=== PATIENT | male | born 1955 | race Caucasian/White ===

== ENCOUNTER 2019-11-14 05:42 | Emergency (ER) | payer BC, OTHER ==
[~2019-11-14] VITALS: Ht 182.9 cm; Wt 113.4 kg
[2019-11-14 05:42] VITALS: BP_SYST 134
--- NOTE | 2019-11-14 05:52 | NUR ---
Pt BIB BLS, placed to ER bed 03. Report given to BERNADETTE Torres.
[2019-11-14] MEDS ORDERED: NACL 0.9% 1,000 ML IV ONE (06:00)
--- NOTE | 2019-11-14 06:05 | NUR ---
Dr. Hirsch bedside for Pt eval
--- NOTE | 2019-11-14 06:20 | NUR ---
Pt BIBA to ED C/O weakness in his legs. Patient was at work and he was bending down. The patient tried to get up but could not. Patient had weakness in his right leg greater than his left leg. The patient has incontinence from prostate cancer in the past. Patient denies having any back pain or back problems. He went to see his primary care doctor about his condition yesterday, but the doctor was only going to draw some blood work. He states he's been having this problem weakness in his legs right greater than left for the last 3 or 4 years VSS no s/s of acute distress Resting on [employer] up
--- NOTE | 2019-11-14 06:47 | NUR ---
Portable X Ray bedside, well tolerated
[2019-11-14 06:55] LABS: BASOPHILS % (AUTO) 0.6 % (0.0-2.0); HEMATOCRIT 47.8 % (36-54); HEMOGLOBIN 16.5 g/dL (14.0-18.0); LYMPHOCYTES # (AUTO) 0.5 K/uL (1.0-5.5); LYMPHOCYTES % (AUTO) 10.2 % (20.5-51.5); MEAN CORPUSCULAR HEMOGLOBIN 29 pg (27-31); MEAN CORPUSCULAR HGB CONC 35 % (32-36); MEAN CORPUSCULAR VOLUME 83 fL (79.0-98.0); MONOCYTES # (AUTO) 0.4 K/uL (0.0-1.0); MONOCYTES % (AUTO) 8.8 % (1.7-9.3); NEUTROPHILS # (AUTO) 3.6 K/uL (1.8-7.7); NEUTROPHILS % (AUTO) 79.4 % (40.0-70.0); PLATELET COUNT (AUTO) 189 K/uL (130-430); RED BLOOD CELL COUNT(AUTO) 5.75 MIL/uL (4.2-6.2); RED CELL DISTRIBUTION WIDTH 13.9 % (9.0-15.0); WHITE BLOOD COUNT (AUTO) 4.5 K/uL (4.8-10.8)
[2019-11-14 07:06] LABS: ANION GAP 6 (5-15); CALCIUM 9.3 mg/dL (8.4-11.0); CHLORIDE 97 mmol/L (98-107); CREATININE 0.99 mg/dL (0.55-1.30); GLUCOSE 294 mg/dL (70-99); POTASSIUM 4.4 mmol/L (3.5-5.1); SODIUM SERUM 133 mmol/L (136-145); UREA NITROGEN, BLOOD 10 mg/dL (8-21)
[2019-11-14 07:14] LABS: ALANINE AMINOTRANSFERASE 99 U/L (12-78); ALBUMIN 4.7 g/dL (3.4-4.8); ASPARTATE AMINOTRANSFERASE 49 U/L (10-37)
[2019-11-14 07:15] LABS: GFR AFRICAN AMERICAN 98 mL/min (>90)
--- NOTE | 2019-11-14 07:30 | NUR ---
Patient is resting comfortably in bed. Denied any respiratory distress at this time. IV fluids running. Instructed to notify ED staff for any changes in condition or worsening of symptoms. Patient verbalized understanding.
[2019-11-14 07:38] LABS: CKMB RELATIVE INDEX 1.2 (0.0-2.9); CREATINE KINASE MB 3.6 ng/mL (0-3.6)
[2019-11-14 08:30] VITALS: BP_SYST 131
== END 2019-11-14 08:30 | disposition home or self-care (01) ==
LOC: SED 05:42
DX: E11.65 Type 2 diabetes mellitus with hyperglycemia (principal); R53.1 Weakness; Z85.46 Personal history of malignant neoplasm of prostate
CPT/HCPCS: 36415; 70450; 71045; 80053; 82550; 82553; 83874; 84484; 85025; 93005; 96360; 96361; 99284; J7030

== ENCOUNTER 2023-03-17 23:15 | Inpatient (IN) | payer OTHER, MEDICAID ==
[~2023-03-17] VITALS: Ht 182.9 cm; Wt 98.0 kg
[2023-03-17 23:15] VITALS: BP_SYST 150
--- NOTE | 2023-03-17 23:15 | NUR ---
Patient triaged and placed in ER bed 7 for evaluation. Vital signs updated, denied any acute distress at this time. Report given to HUGO FLEMING for continuity of care. Instructed to notify ED staff for any changes in condition or worsening of symptoms. Patient verbalized understanding.
--- NOTE | 2023-03-17 23:36 | NUR ---
Dr. Saeed at bedside examining the patient.
[2023-03-17] MEDS ORDERED: NACL 0.9% 1,000 ML IV ONE (23:45)
--- NOTE | 2023-03-18 00:04 | NUR ---
Patient is back from CT.
[2023-03-18 00:51] LABS: BASOPHILS % (AUTO) 0.3 % (0.0-2.0); EOSINOPHILS % (AUTO) 0.3 % (0.0-4.0); HEMATOCRIT 41.8 % (36-54); HEMOGLOBIN 14.2 g/dL (14.0-18.0); LYMPHOCYTES % (AUTO) 9.7 % (20.5-51.5); MEAN CORPUSCULAR HEMOGLOBIN 28 pg (27-31); MEAN CORPUSCULAR HGB CONC 34 % (32-36); MEAN CORPUSCULAR VOLUME 83 fL (79.0-98.0); MONOCYTES # (AUTO) 0.9 K/uL (0.0-1.0); NEUTROPHILS # (AUTO) 8.8 K/uL (1.8-7.7); NEUTROPHILS % (AUTO) 81.7 % (40.0-70.0); PLATELET COUNT (AUTO) 200 K/uL (130-430); RED BLOOD CELL COUNT(AUTO) 5.02 MIL/uL (4.2-6.2); RED CELL DISTRIBUTION WIDTH 13.5 % (9.0-15.0); WHITE BLOOD COUNT (AUTO) 10.7 K/uL (4.8-10.8)
[2023-03-18 00:54] LABS: ANION GAP 11 (5-15); CALCIUM 8.7 mg/dL (8.4-11.0); CHLORIDE 100 mmol/L (98-107); CREATININE 0.96 mg/dL (0.55-1.30); GFR AFRICAN AMERICAN 100 mL/min (>90); GLUCOSE 268 mg/dL (70-99); UREA NITROGEN, BLOOD 13 mg/dL (8-21)
[2023-03-18 01:01] LABS: ALANINE AMINOTRANSFERASE 32 U/L (12-78); ALBUMIN 3.5 g/dL (3.4-4.8); ASPARTATE AMINOTRANSFERASE 18 U/L (10-37); TOTAL BILIRUBIN 0.8 mg/dL (0.0-1.0)
--- NOTE | 2023-03-18 01:10 | NUR ---
PT FAILING TO PRODUCE URINE SPECIMEN, TOLD PT I WOULD NEED TO STRAIGHT CATH ACCORDING TO MD VERBAL ORDERS. PT REFUSED AND STATED HE WILL PRODUCE URINE SAMPLE. PENDING SAMPLE. NO OTHER CHANGES.
[2023-03-18 02:16] LABS: BILIRUBIN,URINE NEGATIVE (NEGATIVE); BLOOD, URINE TRACE (NEGATIVE); CLARITY/URINE HAZY (CLEAR); COLOR,URINE YELLOW (YELLOW); GLUCOSE,URINE 2+ (NEGATIVE); KETONES,URINE NEGATIVE (NEGATIVE); LEUKOCYTE ESTERASE ,URINE NEGATIVE (NEGATIVE); NITRITE, URINE NEGATIVE (NEGATIVE); PROTEIN URINE NEGATIVE (NEGATIVE); UROBILINOGEN,URINE 0.2 (0.2-1.0)
[2023-03-18 02:31] LABS: BACTERIA,URINE None Seen /HPF (None Seen); RBC,URINE 0-3 /HPF (0-3); WBC,URINE 0-3 /HPF (0-3)
[2023-03-18] MEDS ORDERED: ZIT250 PO ×2 (03:03)
--- NOTE | 2023-03-18 07:15 | NUR ---
upon assessment, pt observed confused, diaphoretic, unable to follow direction, pt had urinated on self and was unware. Pt unable to stand without assistance and observed with unsteady gait. Notified MD and kept pt for further evaluation.
--- NOTE | 2023-03-18 07:38 | NUR ---
pt changed, EMT assisted in moving patient up in bed. Pt VSS. Pt educated on importance of him staying for evaluation. Pt verbilized understanding.
[2023-03-18] MEDS ORDERED: METF-381 PO (08:53)
--- NOTE | 2023-03-18 08:55 | NUR ---
Noted pt sat at 92. 2L of O2 started on pt. notified. Pt in bed with side rails up.
--- NOTE | 2023-03-18 09:44 | NUR ---
performed in and out cath. per admitting MD. UA collected sent to lab. pt tolerated well. Pt in bed with side rails up.
--- NOTE | 2023-03-18 09:49 | NUR ---
Admit bed requested Patient will be admitted to care of . Admitted to TELE unit. Diagnosis UNSTEADY GAIT Inpatient (Yes or No) Y Observation (Yes or No) N Orientation concerns or request close to nursing station (Yes or No) N Covid Status N/A On vent or bipap N Isolation requirements N Needs a sitter N From Home (Yes or if No enter name of facility) N, MOTEL 6 Requires Dialysis (Yes or No) N Med Rec Completed (Yes of No) Y
[2023-03-18 10:30] VITALS: BP_SYST 129
[2023-03-18] MEDS ORDERED: DEXTROSE 50% JECT 50 ML DISP.SYRIN IVP PRN (11:30)
[2023-03-18 12:08] LABS: BARBITURATE, URINE NEGATIVE (NEG <=200); BENZODIAZEPINE, URINE NEGATIVE (NEG <=150); CANNABINOID, URINE NEGATIVE (NEG <=50); COCAINE, URINE NEGATIVE (NEG <=150); METHAMPHETAMINES SCREEN,URINE NEGATIVE (NEG <=500); OPIATE, URINE NEGATIVE (NEG <=100); PHENCYCLIDINE SCREEN,URINE NEGATIVE (NEG <=25); UR TRICYCLIC ANTIDEPRESSANTS NEGATIVE (NEG <=300); URINE AMPHETAMINE NEGATIVE (NEG <=500); URINE METHADONE NEGATIVE (NEG <=200); URINE OXYCODONE SCREEN NEGATIVE (NEG <=100); URINE PROPOXYPHENE SCREEN NEGATIVE (NEG <=300)
--- NOTE | 2023-03-18 12:36 | NUR ---
CONSULTATION PAGED REASON FOR CONSULTATION:UNSTEADY GAIT WAS CONSULT CALLED?Y PERSON WHO WAS NOTIFIED:TEXT MESSAGED DEON NORTH CONSULTING PHYSICIAN:DEON NORTH RIBBON CLEANER SPECIALTY:NEURO RIBBON CLEANER PHONE NUMBER:[phone] REQUESTING PHYSICIAN:NIKOS GAYTAN
--- NOTE | 2023-03-18 12:39 | NUR ---
CONSULTATION PAGED REASON FOR CONSULTATION:UNSTEADY GAIT WAS CONSULT CALLED?Y PERSON WHO WAS NOTIFIED:FLAQUITA CONSULTING PHYSICIAN:ROBYN GERARDO SR. DIRECTOR PRODUCT MANAGEMENT SPECIALTY:CARDIO SR. DIRECTOR PRODUCT MANAGEMENT PHONE NUMBER:[phone] REQUESTING PHYSICIAN:MICHELLE GAYTAN
--- NOTE | 2023-03-18 13:00 | NUR ---
Patient will be admitted to care of [facility]. Admitted to medsurg unit. Will go to room 113. Belongings list completed. Complete and up to date summary report printed. SBAR report to be given at bedside with opportunity for questions.
[2023-03-18 17:45] VITALS: BP_SYST 163
[2023-03-18] MEDS: INSULIN REGULAR, HUMAN 100 UNITS/ML, 3 ML VIAL (humuLIN R) SUBCUT PRN ×2 (18:24→22:48)
[2023-03-18] MEDS: NACL 0.9% 1,000 ML IV SCH ×2 (18:53→22:49)
--- NOTE | 2023-03-18 19:10 | NUR ---
RECEIVED REPORT ON PATIENT FROM BERNADETTE JOHNSON, ASSUMED CARE, AND STARTED ASSESSMENT.
[2023-03-18 20:00] VITALS: BP_SYST 127
[2023-03-19 00:09] VITALS: BP_SYST 154
[2023-03-19 05:24] LABS: BASOPHILS % (AUTO) 0.5 % (0.0-2.0); EOSINOPHILS # (AUTO) 0.2 K/uL (0.0-0.4); EOSINOPHILS % (AUTO) 2.4 % (0.0-4.0); LYMPHOCYTES # (AUTO) 0.9 K/uL (1.0-5.5); LYMPHOCYTES % (AUTO) 13.1 % (20.5-51.5); MEAN CORPUSCULAR HEMOGLOBIN 28 pg (27-31); MEAN CORPUSCULAR HGB CONC 33 % (32-36); MEAN CORPUSCULAR VOLUME 84 fL (79.0-98.0); MONOCYTES # (AUTO) 0.8 K/uL (0.0-1.0); MONOCYTES % (AUTO) 12.1 % (1.7-9.3); NEUTROPHILS % (AUTO) 71.9 % (40.0-70.0); PLATELET COUNT (AUTO) 175 K/uL (130-430); RED BLOOD CELL COUNT(AUTO) 5.02 MIL/uL (4.2-6.2); RED CELL DISTRIBUTION WIDTH 13.5 % (9.0-15.0); WHITE BLOOD COUNT (AUTO) 6.9 K/uL (4.8-10.8)
[2023-03-19 05:59] LABS: CALCIUM 8.5 mg/dL (8.4-11.0); CREATININE 0.87 mg/dL (0.55-1.30); FREE T4 (FREE THYROXINE) 1.1 ng/dl (0.8-1.5); THYROID STIMULATING HORMONE 0.84 uIu/mL (0.36-3.74); TOTAL BILIRUBIN 0.8 mg/dL (0.0-1.0)
[2023-03-19] MEDS: INSULIN REGULAR, HUMAN 100 UNITS/ML, 3 ML VIAL (humuLIN R) SUBCUT PRN ×4 (07:02→21:16)
[2023-03-19 08:00] VITALS: BP_SYST 130
--- NOTE | 2023-03-19 08:00 | NUR ---
No complaints,v/s stable,continue with plan of care.
--- NOTE | 2023-03-19 08:04 | NUR ---
REPORT GIVEN TO BERNADETTE MOYA, AND CARE WAS TURNED OVER TO HIM.
[2023-03-19 08:06] LABS: FOLATE (FOLIC ACID) 13.9 ng/mL (>3.0)
[2023-03-19 11:40] VITALS: BP_SYST 117
--- NOTE | 2023-03-19 13:25 | NUR ---
Computer Education Professor assessment: Met with patient at bedside to discuss his current living arrangements. The patient is alert and oriented and is in agreement to speaking with me. per patient, he resides at [address] [address] in [place]. He states he has been there about 2 months, but is in the process of looking for an apartment. The patient was previously residing with her son, however they had a falling out and he left the home. He does have income, in which his disability is approximately $2200 and a care home of approximately $600. He states he and his son don't aways get along. The patient uses a cane as needed. He is independent with his care needs. His PCP is Dr. Oscar in [place]. The discharge plan is to return back to the [facility], but states he is making plans to look for an apartment to rent. Resources were offered to the patient regarding stable housing and services. The patient declined the information as he stated he does not have a housing need. He needed a quick living situation since he left his son's house abruptly.
--- NOTE | 2023-03-19 15:16 | NUR ---
PHYSICAL THERAPY CO-SIGN The Physical Therapy Progress Notes documented by Spd Tech have been reviewed. Reviewed/Co-Signed by: Arnold Stuart Documentation Done by:SEFERINO RUTHERFORD Addendum: 03/19/23 at 1517 by Arnold Stuart PT Amended: Links added.
[2023-03-19] MEDS: NACL 0.9% 1,000 ML IV SCH (17:30)
[2023-03-19 18:20] VITALS: BP_SYST 120
[2023-03-19] MEDS ORDERED: CYANOCOBALAMIN 1000 MCG/ML VIAL IM ONE (18:45)
[2023-03-19] MEDS: metFORMIN HCL 500 MG TABLET PO SCH (19:00)
--- NOTE | 2023-03-19 19:35 | NUR ---
Tolerating diet well,up in chair with PT,report given to Lizzie FLEMING
[2023-03-19 19:41] VITALS: BP_SYST 130
--- NOTE | 2023-03-19 19:41 | NUR ---
PM ASSESSMENT; -Pt is a/ox2, resting in bed comfortably. No s/s any acute distress noted. Generalized weakness noted. Unable to discuss poc d/t cognitive limitation, no family is available this time. All safety measures in place. Fall precaution in place. Side rails x3,call light w/in reach. Cont to monitor pt.
--- NOTE | 2023-03-20 00:16 | NUR ---
ROUNDS; -Pt is asleep. No s/s any acute distress noted. All safety measures in place. IVF infusing well, no s/s any infiltration noted. Call light w/in reach,side rails x3. Cont to monitor pt.
[2023-03-20 00:30] VITALS: BP_SYST 133
[2023-03-20] MEDS: NACL 0.9% 1,000 ML IV SCH ×2 (03:30→05:37)
[2023-03-20] MEDS: INSULIN REGULAR, HUMAN 100 UNITS/ML, 3 ML VIAL (humuLIN R) SUBCUT PRN ×4 (06:20→20:56)
--- NOTE | 2023-03-20 06:34 | NUR ---
CLOSING NOTES; -Pt is resting in bed comfortably. No s/s any acute distress noted. All safety measures in place. IVF infusing well, no s/s any infiltration noted. Call light w/in reach,side rails x3. Pt's condition stable. Will endorse to next nurse to continuity of care. .
[2023-03-20 07:55] VITALS: BP_SYST 130
[2023-03-20] MEDS: MULTIVITS,CA,MINERALS/IRON/FA 1 TABLET PO SCH (08:17)
[2023-03-20] MEDS: CYANOCOBALAMIN (VITAMIN B-12) 1,000 MCG TABLET PO SCH (08:18)
[2023-03-20] MEDS: metFORMIN HCL 500 MG TABLET PO SCH ×2 (08:18→17:08)
--- NOTE | 2023-03-20 09:18 | NUR ---
CONSULTATION PAGED/CALLED Reason for Consultation: Knees Effusion Person Who was Notified: Consulting Physician: Dr. Yancey (tonal regulator) Team Lead Specialty: Orthopaedic Surgery Ordering Physician: Dr. Muñiz
[2023-03-20] MEDS: CHOLECALCIFEROL (VITAMIN D3) 2,000 UNIT TABLET PO SCH (10:27)
[2023-03-20 12:00] VITALS: BP_SYST 132
[2023-03-20 16:00] VITALS: BP_SYST 133
--- NOTE | 2023-03-20 18:50 | NUR ---
Note Pt got OOB and was incontinent of stool on the floor and IV was pulled out. Pt was given hygiene care and assisted back to bed. Pt next to nurses' station for close observation for needs and care. Pt was maintained with safety precautions all shift. IV in LFA 20g' inserted, patent and intact at this time. Pt was checked on q1' and PRN all shift for needs and care. Call light within reach. Tele unit was dc'd at 08am.
[2023-03-20 20:52] VITALS: BP_SYST 132
--- NOTE | 2023-03-21 | NUR ---
24 hr chart verification- no new order.
[2023-03-21 00:26] VITALS: BP_SYST 150
--- NOTE | 2023-03-21 04:57 | NUR ---
Pt remained stable. denied any distress. V/s stable afebrile. Used urinal. Continent of urine and bm. able to call for help. Skin dry and intact.
[2023-03-21] MEDS: metFORMIN HCL 500 MG TABLET PO SCH ×2 (08:00→17:54)
[2023-03-21] MEDS: CYANOCOBALAMIN (VITAMIN B-12) 1,000 MCG TABLET PO SCH (09:00)
[2023-03-21] MEDS: CHOLECALCIFEROL (VITAMIN D3) 2,000 UNIT TABLET PO SCH (09:00)
[2023-03-21] MEDS: MULTIVITS,CA,MINERALS/IRON/FA 1 TABLET PO SCH (09:00)
[2023-03-21] MEDS: INSULIN REGULAR, HUMAN 100 UNITS/ML, 3 ML VIAL (humuLIN R) SUBCUT PRN ×3 (11:41→21:55)
[2023-03-21 12:00] VITALS: BP_SYST 144
--- NOTE | 2023-03-21 15:24 | NUR ---
Dietitian Recommendations * Continue [facility] [place] diet Submitted for JSOIAS Botello by Kenya Do, MPH, RD Please refer to RD Assessment for further details. Thanks!
[2023-03-21 16:33] VITALS: BP_SYST 148
--- NOTE | 2023-03-21 19:54 | NUR ---
RECEIVED PT LYING IN BED, NO DISTRESS NOTED, DENIES PAIN. AAOX2, LUNG SOUNDS DIMINISHED, IV TO LT WRIST. DENIES DIZZINESS AT THIS TIME. BED IN LOW POSITION, BED ALARM ON, CALL LIGHT WITHIN REACH.
[2023-03-21 20:00] VITALS: BP_SYST 120
--- NOTE | 2023-03-21 20:05 | NUR ---
patient doing well ambulating with out problems. Plans to transfer to [facility]
[2023-03-22] VITALS: BP_SYST 146
[2023-03-22 05:38] LABS: BASOPHILS % (AUTO) 0.5 % (0.0-2.0); EOSINOPHILS # (AUTO) 0.2 K/uL (0.0-0.4); EOSINOPHILS % (AUTO) 2.8 % (0.0-4.0); HEMATOCRIT 42.1 % (36-54); HEMOGLOBIN 14.4 g/dL (14.0-18.0); LYMPHOCYTES # (AUTO) 1.2 K/uL (1.0-5.5); LYMPHOCYTES % (AUTO) 19.2 % (20.5-51.5); MEAN CORPUSCULAR HEMOGLOBIN 28 pg (27-31); MEAN CORPUSCULAR HGB CONC 34 % (32-36); MEAN CORPUSCULAR VOLUME 82 fL (79.0-98.0); MONOCYTES # (AUTO) 0.5 K/uL (0.0-1.0); MONOCYTES % (AUTO) 8.6 % (1.7-9.3); NEUTROPHILS # (AUTO) 4.4 K/uL (1.8-7.7); NEUTROPHILS % (AUTO) 68.9 % (40.0-70.0); PLATELET COUNT (AUTO) 259 K/uL (130-430); RED BLOOD CELL COUNT(AUTO) 5.14 MIL/uL (4.2-6.2); RED CELL DISTRIBUTION WIDTH 13.4 % (9.0-15.0); WHITE BLOOD COUNT (AUTO) 6.4 K/uL (4.8-10.8)
[2023-03-22 06:02] LABS: CALCIUM 9.5 mg/dL (8.4-11.0); CREATININE 0.79 mg/dL (0.55-1.30)
[2023-03-22] MEDS: INSULIN REGULAR, HUMAN 100 UNITS/ML, 3 ML VIAL (humuLIN R) SUBCUT PRN ×3 (06:33→17:57)
--- NOTE | 2023-03-22 07:30 | NUR ---
Initial Note: Report received from Magdalene. patient is awake alert x3. Bed alarm is on. Bed in the lowest position. Side rails x3 up. Call light in reach. Assessment is done and vital checked. No pain or discomfort at this time. Will continue patient care.
[2023-03-22 08:00] VITALS: BP_SYST 131
[2023-03-22] MEDS ORDERED: LOSARTAN POTASSIUM 25 MG TABLET PO SCH (09:00)
[2023-03-22] MEDS: CHOLECALCIFEROL (VITAMIN D3) 2,000 UNIT TABLET PO SCH (09:40)
[2023-03-22] MEDS: CYANOCOBALAMIN (VITAMIN B-12) 1,000 MCG TABLET PO SCH (09:40)
[2023-03-22] MEDS: MULTIVITS,CA,MINERALS/IRON/FA 1 TABLET PO SCH (09:40)
[2023-03-22] MEDS: metFORMIN HCL 500 MG TABLET PO SCH ×2 (09:41→17:54)
--- NOTE | 2023-03-22 11:33 | NUR ---
CM met with patient at bedside to discuss discharge planning for SNF . Patient refused to go to a SNF. He states, "Im going to go home and be fine with my cane" patient's RN at bedside and witnessed this conversation. Patient said he would be ok with home health PT if he needs it
[2023-03-22 11:35] VITALS: BP_SYST 136
[2023-03-22] MEDS ORDERED: METF-379 PO (14:11)
[2023-03-22] MEDS ORDERED: VITD2000 PO (14:11)
[2023-03-22] MEDS ORDERED: GLIP5TAB13 PO (14:11)
[2023-03-22] MEDS ORDERED: MULT-1145 PO (14:11)
[2023-03-22] MEDS ORDERED: LOSA25TA3 PO (14:11)
[2023-03-22] MEDS ORDERED: CYAN-45 PO (14:11)
[2023-03-22] MEDS ORDERED: METF-381 PO (14:11)
[2023-03-22] MEDS ORDERED: ASPI-1457 PO (14:16)
--- NOTE | 2023-03-22 15:15 | NUR ---
CM faxed referral for auth along with required form to [facility] f#[phone]. [facility] with review request and if they approve they will assign a contracted HH agency to contact patient
--- NOTE | 2023-03-22 15:18 | NUR ---
PHYSICAL THERAPY CO-SIGN The Physical Therapy Progress Notes documented by Process Analyst have been reviewed. Reviewed/Co-Signed by: Arnold Stuart Documentation Done by:SEFERINO RUTHERFORD Addendum: 03/22/23 at 1518 by Arnold Stuart PT Amended: Links added.
[2023-03-22 17:23] VITALS: BP_SYST 131
[2023-03-22 18:16] VITALS: BP_SYST 131
--- NOTE | 2023-03-22 19:44 | NUR ---
Closing and discharge note: reported to Ronaldo. Patient is awake alert x4. Discharge paper signed by patient and discharge instruction was given. Patient verbalized understanding. IV on left forearm was removed. Pressure applied to the site by gauze. No pain or discomfort or bleeding at this time. [employer] was arranged by warehouse record clerk. Patient was dressed and ready to go when the uber is here. Endorse Ronaldo to follow up with the discharge.
[2023-03-22 19:51] VITALS: BP_SYST 129
--- NOTE | 2023-03-22 20:05 | NUR ---
pt discharged via [facility] left at 1999 to [facility], their home vital signs stable escorted out via wheelchair
== END 2023-03-22 20:00 | disposition home health service (06) | DRG 638 ==
LOC: SED 23:15 → STU 03-18 09:09 → SMU 03-20 08:07
PROVIDERS: ADMIT Internal Medicine; ATTEND Internal Medicine
PROC: 4A00X4Z Measurement of Central Nervous Electrical Activity, External Approach (ICD-10-PCS; principal; 2023-03-19)
DX: E11.65 Type 2 diabetes mellitus with hyperglycemia (principal); E87.1 Hypo-osmolality and hyponatremia; M17.0 Bilateral primary osteoarthritis of knee; F32.A Depression, unspecified; E53.8 Deficiency of other specified B group vitamins; E11.40 Type 2 diabetes mellitus with diabetic neuropathy, unspecified; E55.9 Vitamin D deficiency, unspecified; R29.6 Repeated falls; M85.80 Other specified disorders of bone density and structure, unspecified site; E11.42 Type 2 diabetes mellitus with diabetic polyneuropathy; W18.39XA Other fall on same level, initial encounter; Z82.0 Family history of epilepsy and other diseases of the nervous system; Z79.84 Long term (current) use of oral hypoglycemic drugs; Z85.46 Personal history of malignant neoplasm of prostate; Z63.4 Disappearance and death of family member; Y93.89 Activity, other specified; Y99.8 Other external cause status; Y92.481 Parking lot as the place of occurrence of the external cause
CPT/HCPCS: 36415; 70450-TC; 70551; 71045; 76376; 80048; 80053; 80061; 80307; 81000; 82140; 82306; 82607; 82746; 82962; 83037; 84439; 84443; 84484; 85025; 93005; 93306; 95816; 96360; 97110-GP; 97112-GP; 97116-GP; 97530-GP; 99285; G0378; J3420

== ENCOUNTER 2023-09-30 06:09 | Emergency (ER) | payer OTHER, MEDICAID ==
[~2023-09-30] VITALS: Ht 182.9 cm; Wt 102.1 kg
[~2023-09-30 06:09] MED LIST: ASPI-1457 PO; CYAN-45 PO; GLIP5TAB13 PO; LOSA-412 PO; METF-379 PO; METF-381 PO; MULT-1145 PO; VITD2000 PO
[2023-09-30 06:19] VITALS: BP_SYST 145; PULSE 80; RESP 18; TEMP 98.6; O2SAT 97
[2023-09-30 06:55] LABS: BASOPHILS % (AUTO) 0.4 % (0.0-2.0); EOSINOPHILS % (AUTO) 0.4 % (0.0-4.0); HEMATOCRIT 42.6 % (36-54); HEMOGLOBIN 13.9 g/dL (14.0-18.0); LYMPHOCYTES % (AUTO) 13.1 % (20.5-51.5); MEAN CORPUSCULAR HEMOGLOBIN 26 pg (27-31); MEAN CORPUSCULAR HGB CONC 33 % (32-36); MEAN CORPUSCULAR VOLUME 80 fL (79.0-98.0); MONOCYTES # (AUTO) 0.6 K/uL (0.0-1.0); MONOCYTES % (AUTO) 7.5 % (1.7-9.3); NEUTROPHILS # (AUTO) 5.9 K/uL (1.8-7.7); NEUTROPHILS % (AUTO) 78.6 % (40.0-70.0); PLATELET COUNT (AUTO) 203 K/uL (130-430); RED BLOOD CELL COUNT(AUTO) 5.36 MIL/uL (4.2-6.2); RED CELL DISTRIBUTION WIDTH 15.1 % (9.0-15.0); WHITE BLOOD COUNT (AUTO) 7.5 K/uL (4.8-10.8)
[2023-09-30 07:12] LABS: ANION GAP 10 (5-15); CALCIUM 9.4 mg/dL (8.4-11.0); CARBON DIOXIDE 28 mmol/L (23-29); CHLORIDE 100 mmol/L (98-107); GFR AFRICAN AMERICAN 95 mL/min (>90); GLUCOSE 196 mg/dL (74-106); POTASSIUM 3.7 mmol/L (3.5-5.1); SODIUM SERUM 138 mmol/L (136-145); UREA NITROGEN, BLOOD 6 mg/dL (8-21)
[2023-09-30 07:15] LABS: GFR NON AFRICAN-AMERICAN 79 mL/min (>90)
[2023-09-30 07:19] LABS: INR 1.1 (0.80-1.20); PROTHROMBIN TIME 11.3 SECS (9.5-12.5)
[2023-09-30 07:25] LABS: ALANINE AMINOTRANSFERASE 26 U/L (12-78); ALBUMIN 3.5 g/dL (3.4-4.8); ASPARTATE AMINOTRANSFERASE 14 U/L (10-37); CREATINE KINASE, TOTAL 111 U/L (39-308); THYROID STIMULATING HORMONE 0.95 uIu/mL (0.34-4.82); TOTAL BILIRUBIN 0.6 mg/dL (0.0-1.0); TOTAL PROTEIN, SERUM 7.2 g/dL (6.4-8.3)
[2023-09-30 07:37] LABS: ACETONE, SERUM NEGATIVE (NEGATIVE)
[2023-09-30 08:30] LABS: BILIRUBIN,URINE NEGATIVE (NEGATIVE); BLOOD, URINE NEGATIVE (NEGATIVE); CLARITY/URINE CLEAR (CLEAR); COLOR,URINE YELLOW (YELLOW); GLUCOSE,URINE 1+ (NEGATIVE); KETONES,URINE 1+ (NEGATIVE); LEUKOCYTE ESTERASE ,URINE NEGATIVE (NEGATIVE); NITRITE, URINE NEGATIVE (NEGATIVE); PROTEIN URINE NEGATIVE (NEGATIVE)
[2023-09-30 12:47] VITALS: BP_SYST 145; PULSE 80; RESP 18; TEMP 98.6; O2SAT 97
== END 2023-09-30 11:47 | disposition home or self-care (01) ==
LOC: SED 06:09
DX: R78.89 Finding of other specified substances, not normally found in blood (principal); R53.1 Weakness; E11.9 Type 2 diabetes mellitus without complications; R27.0 Ataxia, unspecified; Z79.84 Long term (current) use of oral hypoglycemic drugs
CPT/HCPCS: 36415; 70450-TC; 71045; 76376; 80053; 81001; 81003; 82009; 82550; 83605; 84439; 84443; 84484; 85025; 85610-TC; 85730-TC; 93005; 99285